=== PATIENT | male | born 1970 | race Caucasian/White ===

== ENCOUNTER 2023-03-31 13:42 | Outpatient (CLI) | payer OTHER ==
--- NOTE | 2023-03-31 16:55 | MRI Report ---
PROCEDURE: SHOULDER WO - LT INDICATIONS: BICIPITAL TENDINITIS TECHNIQUE: Noncontrast oblique coronal T2 fast spin echo with fat saturation, oblique sagittal T1 spin echo and T2 fast spin echo with fat saturation, axial T1 spin echo and T2 fast spin echo with fat saturation t hrough the shoulder. COMPARISON: None. FINDINGS: Image quality: Excellent. Rotator cuff: Low-grade bursal surface partial-thickness tear involving distal supraspinatus at its i nsertion on humeral head is seen extending to musculotendinous junction. Distal infraspinatus and sub scapularis tendinosis is noted. No full-thickness rotator cuff tendon rupture. No significant rotator cuff muscle atrophy on sagittal images. Bones and bursae: No bone marrow contusions or fractures. Moderate acromioclavicular joint osteoarth ritic changes are seen with joint space narrowing and downward osteophyte formation depressing on mus culotendinous junction of supraspinatus. The acromion demonstrates conventional anatomy, without an o s acromiale. Small amount of subacromial subdeltoid bursal fluid is seen, no gross loose bodies. Capsule and soft tissues: There is fraying of posterior superior labrum with T2 hyperintense signal a t 11 to 12:00 position suggestive of subtle posterior superior labral tear. The long head of the sandra ps tendon appears thickened intra-articularly. The rotator interval appears normal, without fibrosis. The coracohumeral ligament is normal in thickness. IMPRESSION: 1. Low-grade bursal surface partial-thickness tear involving distal supraspinatus extending to muscul otendinous junction. Distal infraspinatus and subscapularis tendinosis. No full-thickness rotator cuf f tendon rupture. 2. Moderate acromioclavicular joint osteoarthritis. No fracture or dislocation. Small amount of subac romial subdeltoid bursal fluid, no gross loose bodies. 3. Finding is concerning for subtle posterior superior labral tear at 11 to 12:00 position. 4. Proximal long head of biceps tendinosis. Reviewed by: Diogenes England MD on 03/31/2023 4:54 PM PST Approved by: Diogenes England MD on 03/31/2023 4:54 PM PST Station ID: [id number]
== END 2023-03-31 13:43 | disposition home or self-care (01) ==
LOC: DI 13:42
PROVIDERS: ATTEND Student in an Organized Health Care Education/Training Program
DX: M75.22 Bicipital tendinitis, left shoulder (principal); M75.112 Incomplete rotator cuff tear or rupture of left shoulder, not specified as traumatic; M19.012 Primary osteoarthritis, left shoulder; M75.82 Other shoulder lesions, left shoulder